=== PATIENT | female | born 1950 | race Caucasian/White ===

== ENCOUNTER → 2016-12-01 | Outpatient (CLI) | payer BC ==
[~2016-12-01] MED LIST: ALBU1AER9 INH; ASPI81TA28 PO; ATOR-26 PO; CALC600T9 PO; CLON1TAB3 PO; CLR10 PO; CYCL10TA6 PO; CZR25 PO; ESCI10TA17 PO; FURO-85 PO; IMDSR30 PO; LEVO125T72 PO; LPR25 PO; REGADENOSON 0.4 MG/5 ML SYR ONE; ROPI0.25 PO; SUMA100T16 PO
--- NOTE | 2016-12-02 11:35 | MYOCARDIAL PERFUSION SCAN ---
ONE-DAY NUCLEAR MEDICINE TECHNETIUM-99M CARDIOLITE MYOCARDIAL PERFUSION SCAN STUDY REQUESTED BY: Dr. Sathish Fernández. PRIMARY CARE PHYSICIAN: Dr. Glover. INDICATION: Dyspnea on exertion, abnormal stress echo, decreased exercise tolerance. EKG: Baseline EKG shows normal sinus rhythm at a ventricular rate of 53. There are no significant ST abnormalities. Stress EKG with Lexiscan, heart rate lidia from 56 to 85 representing 55% maximum predicted heart rate. Blood pressure lidia from 138/72 to 145/76. There was no Lexiscan ST induced abnormalities and no significant arrhythmias. With Lexiscan the patient did have mild chest discomfort. TECHNIQUE: For the stress portion of the study 29.8 mCi of technetium-99m Cardiolite IV was injected at 1336 p.m. on 12/01/2016. Thirty minutes following the injection, imaging of the heart was performed in multiple projections. For the rest portion of the study, 11 mCi of technetium-99m Cardiolite was injected IV at 11:30 a.m. One hour following the injection, imaging of the heart was performed in the same projections. FINDINGS: Rotating raw images were reviewed in detail. There was mild gut and liver uptake impacting the inferior imaging border of the heart, more so on stress than rest. There was mild lateral uniform breast attenuation. There was no significant pathologic extracardiac uptake. The short axis, vertical long axis, and horizontal long axis images were reviewed in detail. There is a small mild largely reversible perfusion defect involving the apical anterior and lateral wall, sum difference score of 3. No other significant perfusion defects noted. LV function was normal with a calculated EF of 58% and no regional wall motion abnormalities. Normal LV size with calculated end-diastolic volume of 87 mL. IMPRESSIONS: 1. Small mild reversible perfusion defect involving the anterior apical anterolateral wall potentially consistent with distal LAD verse diagonal disease. Cannot rule out possible breast attenuation artifact. 2. Normal left ventricular size and function with EF of 58% and no regional wall motion abnormalities. 3. Nondiagnostic Lexiscan EKG due to inability to reach target heart rate.
== END | disposition home or self-care (01) ==
LOC: C.NUCL 10:59
PROVIDERS: ATTEND Internal Medicine Interventional Cardiology
DX: R07.9 Chest pain, unspecified (principal)

== ENCOUNTER → 2016-12-08 | Outpatient (CLI) | payer BC ==
[~2016-12-08] MED LIST changes: -REGADENOSON 0.4 MG/5 ML SYR ONE
[2016-12-08 15:43] LABS: HEMATOCRIT 40.6 % (37-47); MEAN CELL VOLUME 92.1 fL (80-100); MEAN CORPUSCULAR HEMOGLOBIN 32.4 pg (25-34); MEAN CORPUSCULAR HGB CONC 35.2 g/dl (32-36); MEAN PLATELET VOLUME 10.3 fL (7.4-10.4); PLATELET COUNT 208 K/uL (130-400); RED BLOOD COUNT 4.41 M/uL (4.2-5.4); WHITE BLOOD COUNT 7.16 K/uL (4.8-10.8)
[2016-12-08 15:50] LABS: PARTIAL THROMBOPLASTIN RATIO 1.2; PROTHROMBIN TIME (PATIENT) 10.2 SECONDS (9.0-12.0)
[2016-12-08 16:07] LABS: BLOOD UREA NITROGEN 21 mg/dl (7-18); BUN/CREATININE RATIO 29.9 (10-20); CALCIUM 9.1 mg/dl (8.5-10.1); CARBON DIOXIDE 26 mmol/L (21-32); CHLORIDE 103 mmol/L (98-107); GLUCOSE 91 mg/dl (70-99); POTASSIUM 3.5 mmol/L (3.5-5.1); SODIUM 138 mmol/L (136-145)
== END | disposition home or self-care (01) ==
LOC: C.LAB1850 14:48
PROVIDERS: ATTEND Internal Medicine Interventional Cardiology
DX: Z01.812 Encounter for preprocedural laboratory examination (principal); R07.9 Chest pain, unspecified

== ENCOUNTER → 2016-12-23 | Day surgery (SDC) | payer BC ==
[~2016-12-23] VITALS: Ht 160 cm; Wt 89.0 kg
[~2016-12-23] MED LIST changes: +FENTANYL CITRATE INJ 50 MCG/1 ML 2 ML VIAL ONE; +HEPARIN SOD (PORCINE) 1000 UNIT/ML 10 ML VIAL ONE; +MIDAZOLAM HCL 1 MG/ML 2ML VIAL ONE; +NITROGLYCERIN/D5W 100MCG/ML 20ML SYR ONE; +NiCARDipine HCL INJ 2.5 MG/ML 10 ML AMP ONE
[2016-12-23 08:29] VITALS: BP 146/71; PULSE 59; TEMP 36.5; O2SAT 96; Ht 160 cm; Wt 89.0 kg
--- NOTE | 2016-12-23 10:25 | History & Physical Bridge Note ---
H&P Re-Evaluation Bridge Note: I have examined the patient, reviewed the History & Physical and in the interval since the performance of the History & Physical I have noted the following changes of clinical significance: No changes noted
--- NOTE | 2016-12-23 10:26 | Procedure Note ---
Pre-Mod Sedation Assessment General Date of Moderate Sedation: Dec 23, 2016. Vital Signs: Vital Signs Past 12 Hours Date Time Temp Pulse Resp B/P (MAP) Pulse Ox O2 Delivery O2 Flow Rate FiO2 12/23/16 08:29 36.5 59 18 146/71 96 Room Air Review Cardiovascular: regular rate, rhythm, no edema Abdomen: normal bowel sounds, non tender Lungs: chest non-tender, lungs clear Airway Class: III Pre-Sedation Airway Assessment Oral Cavity: WNL Able to Visualize Vocal Cords: No Short Thick Neck: No Hx of Sleep Apnea: No Smoking Status: Never Smoker Mallampati Classification: Class III ASA Classification: Class II Procedure Planning Contraindications-for Mod Sed: None Yes Notes The planned sedation has been discussed with the patient and consent obtained. I have identified the patient, determined the appropriateness of sedation and have assessed the patient immediately prior to the procedure. All medicine(s) and interventions are by my order.
--- NOTE | 2016-12-23 10:27 | Procedure Note ---
Post-Mod Sedation Assessment General Date of Moderate Sedation Dec 23, 2016. Vital Signs: Vital Signs Past 12 Hours Date Time Temp Pulse Resp B/P (MAP) Pulse Ox O2 Delivery O2 Flow Rate FiO2 12/23/16 08:29 36.5 59 18 146/71 96 Room Air Review - Discharge Criteria Vital Signs Stable: Yes Alert/Oriented/Conversant: Yes Returned to Baseline Mental St: Yes Nausea Absent/Minimal: Yes Pain/Discomfort/Absent/Minimal: Yes Normal/Baseline Respirations: Yes Active Bleeding?: No Pt Received D/C Instructions: Yes Prescriptions Given: None Specific Proced. D/C Criteria Distal Pulses Present (Cardiac: Yes Groin site assessed-Card Cath: N/A Voided Prior To Discharge: N/A Discharged Patients Adult Escort/Transportation: Yes
--- NOTE | 2016-12-23 10:43 | Cardiac Catheterization ---
Procedure Note Procedure Date Dec 23, 2016. Pre-Procedure Diagnosis Angina, Cardiothoracic Symptom AUC Score 7 Post-Procedure Diagnosis Mild CAD, Normal Intracardiac Pressures Procedure(s) Performed Coronary Angiography, Left Heart Cath Signals Analyst Pradeep Stripper Color(s) Hodan Estimated Blood Loss 10 Medication(s) Fentanyl, Heparin, Nitroglycerin, Versed, Lidocaine 1% Summary of Findings Indication: History of CAD with prior NM; new exertional chest pain/dyspnea; indeterminate stress test Access: 6Fr Slender Right Radial Artery Catheters: Transformer, JR4, JL4 Findings: LM - Angiographically normal LAD - Mild proximal luminal irregularities, slow flow as wraps around apex. Circumflex - Angiographically normal RCA - Dominant, proximal luminal irregularities, 30% in-stent restenosis in distal RCA stent, slow distal flow in R-PDA LVEDP - 11 Arterial Closure: TR Band Summary: 1. Mild non-obstructive coronary artery disease - 30% distal RCA in-stent restenosis - Slow distal vessel flow potentially consistent with microvascular dysfunction. 2. Normal intracardiac filling pressure Recommendations: Continued ASCVD risk factor modification including ARB/beta-adilene, statin, ASA. Start Imdur 30 mg daily for possible microvascular dysfunction. Consider pulmonary referral for further evaluation of dyspnea on exertion Regular scheduled follow-up with cardiology. Hemodynamics Rest Ao: 134/52/89 Final Ao: 120/59/84 LV: 130/11 Recommendations Medical therapy and/or Counseling Specimens None Radiation Exposure (mGy) 1136 Contrast (mls) 65 Visi Fluids (cc crystalloids) 105 Drains None Anesthesia Moderate Procedural Complication(s) None Disposition Recovery Room / PACU ACC Data Cardiac Status Clinical evaluation leading to the procedure CAD Presntation: Unstable angina Anginal Classification: CCS III Heart Failure: No, NYHA Class: CCS I Cardiogenic Shock w/in 24Hrs: No Imaging studies past 6 months: Yes Stress studies past 6 months: Yes Stress Echocardiogram: Yes - Indeterminant Stress Testing w/SPECT MPI: Yes - Indeterminant Coronary Anatomy Dominant: Right Left Main (% Stenosis): Normal LAD (% Stenosis): Normal Circumflex (% Stenosis): Normal RCA (% Stenosis): Distal (30% ISR) Closure Device Percutaneous Entry Location: Radial Closure Device: Radial Band Recommendations: Medical therapy and/or Counseling Intraprocedure Events Significant Dissection: No Perforation: No
--- NOTE | 2016-12-23 10:46 | Discharge Instructions ---
Discharge Instructions Procedure Procedure Date: Dec 23, 2016. Reason for Visit: Abn Stress Test Dr Fernández. Discharge Discharge Date: Dec 23, 2016. Discharge Diagnosis: Mild nonobstructive coronary artery disease Last Recorded Wt (Kilograms): 89 Anesthesia Post Anesthesia Instructions: If you have had General Anesthesia or IV Sedation: * Do not drive today. * Resume driving when surgeon permits. * Do not make important decisions or sign legal documents today. * Call surgeon for: 1. Temperature elevations greater than 101 degrees F. 2. Uncontrollable pain. 3. Excessive bleeding. 4. Persistent nausea and vomiting. 5. Medication intolerance (nausea, vomiting or rash). * For nausea and vomiting use only clear liquids such as: tea, soda, bouillon until nausea subsides, then gradually increase diet as tolerated. * If you have any concerns or questions, call your surgeon's office. If physician is unavailable and it is an emergency, call 911 or go to the nearest emergency room. Instructions Activity Recommendations: limitations as noted below Recommended Home Diet: resume previous diet Allergies: Coded Allergies: Hydrochlorothiazide (Verified Adverse Reaction, Mild, migraines, 11/24/12) Follow Up Additional Instructions: ACTIVITY RECOMMENDATIONS: It is common to feel weak and fatigue for a few days. * Do not drive or operate any motorized equipment for the next 2 days. * Limit stair usage (2 or 3 trips a day only) for the next 2 days. * Do not lift anything heavier than 10 pounds for the next three days. * Do not engage in vigorous exercise or any sports for the next five days. * You may shower the day after your procedure, but do not immerse the area for three days. Cleanse the site gently with soap and water. SPECIAL CARE INSTRUCTIONS: * You may replace the pressure dressing or band-aid the morning after the procedure. * After your procedure, it is normal to have a small bruise or small lump at the site. Examine your site daily for any change in the bruise or lump, redness, swelling, drainage or numbness. Notify your doctor if any change. BLEEDING: * If there is a small amount of bleeding at the site, lie down and apply firm pressure with a clean cloth for ten minutes. When the bleeding stops, lie quietly keeping the procedure limb straight for six hours. Notify your doctor as soon as possible. * If the bleeding does not stop after ten minutes or if there is a large amount of bleeding or spurting, call 911 immediately. Continue to lie down and hold firm pressure until help arrives. SKIN IRRITATION: * You may experience some redness and/or swelling in the area where radiation was administered. If any skin irritation occurs, please contact your family physician. FOLLOW UP VISIT: Keep any scheduled doctor appointments. Follow-up with: Cardiology as scheduled Pulmonary to be scheduled. Anant Hennessy Recommendations: Call your doctor if: * Temperature above 101 degrees * Pain not relieved by pain medicine ordered * There is increased drainage or redness from any incision * You have any unanswered questions or concerns. Your Doctors Instructions noted above were prepared by provider Chang Fernández. Patient Signature Section: Patient Instructions Signature Page Ivy Gomez Patient (or Guardian) Signature/Date: I have read and understand the instructions given to me by my caregivers. Caregiver/RN/Doctor Signature/Date: The above-named patient and/or guardian has received patient instructions on this date. + Original Patient Signature Page (only) stays with chart. Please make copy for patient.
[2016-12-23 12:45] VITALS: BP 122/55; PULSE 56; O2SAT 98
== END | disposition home or self-care (01) ==
LOC: C.CATH 08:20
PROVIDERS: ATTEND Internal Medicine Interventional Cardiology
DX: I25.10 Atherosclerotic heart disease of native coronary artery without angina pectoris (principal); I42.9 Cardiomyopathy, unspecified; I10 Essential (primary) hypertension; E78.5 Hyperlipidemia, unspecified; I25.2 Old myocardial infarction; M19.90 Unspecified osteoarthritis, unspecified site; E05.00 Thyrotoxicosis with diffuse goiter without thyrotoxic crisis or storm; G25.81 Restless legs syndrome; Z80.3 Family history of malignant neoplasm of breast; Z83.3 Family history of diabetes mellitus; Z87.891 Personal history of nicotine dependence; Z79.82 Long term (current) use of aspirin; Z79.899 Other long term (current) drug therapy

== ENCOUNTER → 2017-01-20 | Outpatient (CLI) | payer BC ==
[~2017-01-20] MED LIST changes: -ALBU1AER9 INH; -CALC600T9 PO; -CLR10 PO; -FENTANYL CITRATE INJ 50 MCG/1 ML 2 ML VIAL ONE; -HEPARIN SOD (PORCINE) 1000 UNIT/ML 10 ML VIAL ONE; -MIDAZOLAM HCL 1 MG/ML 2ML VIAL ONE; -NITROGLYCERIN/D5W 100MCG/ML 20ML SYR ONE; -NiCARDipine HCL INJ 2.5 MG/ML 10 ML AMP ONE
--- NOTE | 2017-01-20 12:03 | DIAGNOSTIC IMAGING REPORT ---
CHEST 2 VIEWS ROUTINE CLINICAL HISTORY: 66 years-old Female presenting with dyspnea on exertion. TECHNIQUE: PA and lateral views of the chest were obtained. COMPARISON: 07/09/2014. FINDINGS: Cardiac silhouette remains mildly enlarged. Apparent left basilar opacity may represent overlapping soft tissues as no corresponding opacity is noted on lateral view. No convincing evidence of a focal infiltrate. No pleural effusion or pneumothorax. Osseous structures normal. Upper abdomen normal. IMPRESSION: 1. Cardiomegaly. No acute cardiopulmonary disease. Electronically signed by: Raj Azar M.D. 01/20/2017 12:01 PM Dictated Date/Time: 01/20/2017 12:00 PM
== END | disposition home or self-care (01) ==
LOC: C.RAD1850 11:43
PROVIDERS: ATTEND Internal Medicine Pulmonary Disease
DX: R06.09 Other forms of dyspnea (principal); I51.7 Cardiomegaly; M79.604 Pain in right leg

== ENCOUNTER → 2017-01-20 | Outpatient (CLI) | payer BC ==
--- NOTE | 2017-01-20 14:43 | DIAGNOSTIC IMAGING REPORT ---
VENOUS DOPPLER LW EXT BILAT HISTORY: Pain. Edema. M79.604 Leg pain, posterior COMPARISON STUDY: None. FINDINGS: There is normal compressibility, flow, and augmentation within the bilateral lower extremity deep venous systems. IMPRESSION: No DVT within the right or left lower extremity. The above report was generated using voice recognition software. It may contain grammatical, syntax or spelling errors. Electronically signed by: Karri Dyson M.D. 01/20/2017 2:41 PM Dictated Date/Time: 01/20/2017 2:41 PM
== END | disposition home or self-care (01) ==
LOC: C.ULTRBC 13:14
PROVIDERS: ATTEND Internal Medicine Pulmonary Disease
DX: M79.604 Pain in right leg (principal)

== ENCOUNTER → 2017-02-17 | Outpatient (CLI) | payer BC | END | disposition home or self-care (01) | LOC: C.LAB1850 09:58 | PROVIDERS: ATTEND Internal Medicine Pulmonary Disease | DX: R06.09 Other forms of dyspnea (principal) ==

== ENCOUNTER → 2017-03-01 | Outpatient (CLI) | payer BC ==
--- NOTE | 2017-03-01 17:33 | DIAGNOSTIC IMAGING REPORT ---
CT OF THE CHEST WITHOUT IV CONTRAST CLINICAL HISTORY: Dyspnea on exertion. Abnormal diffusion capacity on pulmonary function tests. COMPARISON STUDY: Chest CT September 22, 2007 and chest radiograph January 20, 2017. CT DOSE: 404.94 mGy.cm TECHNIQUE: Axial images of the chest were obtained without IV contrast. Images were reviewed in the axial, sagittal, and coronal planes. IV contrast was not administered for this examination. A dose lowering technique was utilized adhering to the principles of ALARA. FINDINGS: The thyroid is surgically absent. No enlarged axillary, mediastinal or hilar lymph nodes are present. The heart is mildly enlarged. There is no pericardial effusion. No pneumothorax or pleural effusion is present. The central airways are patent. There is no consolidation to suggest pneumonia. There is mild upper lobe predominant paraseptal and centrilobular emphysema. In addition, there is peripheral predominant subpleural reticulation and groundglass opacity without honeycombing. Slight progression is noted since exam of September 22, 2007. Tiny upper lobe predominant pulmonary nodules which are likely benign. There are no suspicious pulmonary nodules. Bony thorax and upper abdomen are unremarkable on this unenhanced exam. IMPRESSION: 1. Mild peripheral predominant subpleural reticulation and groundglass opacity which suggests interstitial lung disease with a NSIP (nonspecific interstitial pneumonia) pattern. No honeycombing. 2. Mild upper lobe predominant centrilobular and paraseptal emphysema. 3. Tiny upper lobe predominant nodules which are likely benign. No suspicious pulmonary nodules. 4. No consolidation to suggest pneumonia. Electronically signed by: Harvey Valentine M.D. 03/01/2017 5:32 PM Dictated Date/Time: 03/01/2017 4:42 PM
== END | disposition home or self-care (01) ==
LOC: C.CTS 15:56
PROVIDERS: ATTEND Internal Medicine Pulmonary Disease
DX: R06.09 Other forms of dyspnea (principal); R94.2 Abnormal results of pulmonary function studies; R91.8 Other nonspecific abnormal finding of lung field

== ENCOUNTER → 2017-03-16 | Outpatient (CLI) | payer BC ==
[2017-03-19 10:56] LABS: ANTI-CENTROMERE AB <1.0 NEG AI (<1.0 NEG); ANTI-SS-A <1.0 NEG AI (<1.0 NEG); ANTI-SS-B <1.0 NEG AI (<1.0 NEG); DNA ds CRITHIDIA NEGATIVE (NEGATIVE); Sm Antibody <1.0 NEG AI (<1.0 NEG)
== END | disposition home or self-care (01) ==
LOC: C.LAB1850 10:27
PROVIDERS: ATTEND Internal Medicine Pulmonary Disease
DX: J84.9 Interstitial pulmonary disease, unspecified (principal)

== ENCOUNTER → 2017-05-13 | Outpatient (CLI) | payer BC ==
[~2017-05-13] MED LIST changes: +OPTIRAY 320 IV PRN
--- NOTE | 2017-05-13 12:36 | DIAGNOSTIC IMAGING REPORT ---
CT ANGIOGRAM OF THE CHEST CLINICAL HISTORY: Atypical chest pain and shortness of breath COMPARISON STUDY: 03/01/2017 TECHNIQUE: Following the IV administration of 94 mL of Optiray-320, CT angiogram of the thorax was performed from the thoracic inlet to the lung bases utilizing the pulmonary embolus protocol. Images are reviewed in the axial, sagittal, and coronal planes. IV contrast was administered without complication. MIP imaging was performed. A dose lowering technique was utilized adhering to the principles of ALARA. CT DOSE: 457.26 mGycm FINDINGS: There are persistent mildly enlarged mediastinal lymph nodes. There is a 12 mm short axis right paratracheal lymph node. There is a 1 cm short axis prevascular lymph node. There is no pathologic hilar adenopathy. There is no pathologic axillary lymphadenopathy. There was no evidence of thoracic aortic dilatation. Peripheral lower lobe pulmonary artery opacification is suboptimal. There are no pulmonary artery filling defects however to indicate acute pulmonary embolus. No pleural effusions are visualized. There is persistent subpleural reticulation. This has a slight upper lung zone predominance. There is no honeycombing. There is no focal pulmonary consolidation. There are no suspicious pulmonary masses. IMPRESSION: 1. No evidence of acute pulmonary embolism 2. Stable mild mediastinal lymphadenopathy 3. Persistent subpleural reticulation suggesting underlying interstitial lung disease. The pattern is inconsistent with UIP Electronically signed by: Corwin Felder M.D. 05/13/2017 12:34 PM Dictated Date/Time: 05/13/2017 12:29 PM
== END | disposition home or self-care (01) ==
LOC: C.CTS 12:12
PROVIDERS: ATTEND Internal Medicine Interventional Cardiology
DX: R07.9 Chest pain, unspecified (principal); R06.09 Other forms of dyspnea; R59.0 Localized enlarged lymph nodes

== ENCOUNTER → 2017-08-12 | Outpatient (CLI) | payer BC ==
[~2017-08-12] MED LIST changes: -OPTIRAY 320 IV PRN
[2017-08-12 12:43] LABS: HEMOGLOBIN A1C 5.4 % (4.5-5.6)
== END | disposition home or self-care (01) ==
LOC: C.LAB1850 11:29
PROVIDERS: ATTEND Internal Medicine Endocrinology, Diabetes & Metabolism
DX: E03.9 Hypothyroidism, unspecified (principal)

== ENCOUNTER 2019-02-20 10:04 | Inpatient (IN) ==
--- NOTE | 2019-01-26 16:42 | PAT Medication Instructions ---
Medication Instructions Date of Service January 26, 2019 Home Medications atorvastatin 40 mg PO QAM escitalopram oxalate [Lexapro] 10 mg PO QAM furosemide 40 mg PO QAM levothyroxine 125 mcg PO QAM metoprolol tartrate 12.5 mg PO BID sumatriptan succinate 1 dose PO UD PRN Dulera 2 puff INHALATION BID albuterol sulfate [ProAir HFA] 2 puff INHALATION QID PRN cyclobenzaprine 10 mg tablet 10 mg PO HS PRN loratadine 10 mg tablet 10 mg PO QAM PRN prednisone 5 mg tablet 5 mg PO QAM ascorbic acid (vitamin C) [Vitamin C] 1 g PO DAILY aspirin 81 mg PO QAM calcium carbonate [Calcium 500] 1,000 mg PO HS multivitamin 1 tab PO DAILY trazodone 50 mg PO HS PRN vitamin B complex 1 tab PO DAILY Continue as directed prednisone 5 mg tablet 5 mg PO QAM ASK your surgeon for instructions aspirin 81 mg PO QAM DO NOT take the morning of surgery furosemide 40 mg PO QAM loratadine 10 mg tablet 10 mg PO QAM PRN ascorbic acid (vitamin C) [Vitamin C] 1 g PO DAILY calcium carbonate [Calcium 500] 1,000 mg PO HS multivitamin 1 tab PO DAILY vitamin B complex 1 tab PO DAILY Take morning of surgery With a small sip of water, OTHERWISE NOTHING TO EAT OR DRINK AFTER MIDNIGHT: atorvastatin 40 mg PO QAM escitalopram oxalate [Lexapro] 10 mg PO QAM levothyroxine 125 mcg PO QAM metoprolol tartrate 12.5 mg PO BID sumatriptan succinate 1 dose PO UD PRN (if needed) Dulera 2 puff INHALATION BID albuterol sulfate [ProAir HFA] 2 puff INHALATION QID PRN (use if needed; please bring with you to hospital day of surgery if possible) Take evening before surgery metoprolol tartrate 12.5 mg PO BID sumatriptan succinate 1 dose PO UD PRN (if needed) Dulera 2 puff INHALATION BID albuterol sulfate [ProAir HFA] 2 puff INHALATION QID PRN (if needed) cyclobenzaprine 10 mg tablet 10 mg PO HS PRN (if needed) calcium carbonate [Calcium 500] 1,000 mg PO HS trazodone 50 mg PO HS PRN (if needed) Other Notes If you have any questions please call us at [phone] or [phone] or [phone] or [phone]
--- NOTE | 2019-01-27 09:04 | Anesthesiology Consultation ---
Date of Service January 27, 2019 Assessment & Plan (1) Encounter for pre-operative examination: Chart Review Chart Review: Pending: Refer to Additional Notes / Consult section (awaiting preop testing) and Patient seen in Pre Admission Testing History Surgery Operation Date: 02/20/19 10:10 Proposed Procedures p Right Total Knee Revision Arthroplasty, Tibial Component, Possible Cement Spacer, Synovectomy - Cristopher Bowden MD Height/Weight Height: 5 ft 3 in Weight: 101.2 kg Allergies Allergy/AdvReac Type Severity Reaction Status Date / Time hydrochlorothiazide AdvReac Mild migraines Verified 01/24/19 07:17 Medications Home Medications Medication Instructions Recorded Confirmed Last Taken atorvastatin 40 mg PO QAM 07/12/18 01/24/19 07/21/18 10:00 escitalopram oxalate [Lexapro] 10 mg PO QAM 07/12/18 01/24/19 07/22/18 06:00 furosemide 40 mg PO QAM 07/12/18 01/24/19 07/21/18 10:00 levothyroxine 125 mcg PO QAM 07/12/18 01/24/19 07/22/18 05:30 metoprolol tartrate 12.5 mg PO BID 07/12/18 01/24/19 07/22/18 06:00 sumatriptan succinate 1 dose PO UD PRN 07/12/18 01/24/19 06/23/18 14:00 Dulera 2 puff INHALATION BID 07/22/18 01/24/19 07/21/18 23:00 albuterol sulfate [ProAir HFA] 2 puff INHALATION QID PRN 07/22/18 01/24/19 07/21/18 10:00 cyclobenzaprine 10 mg tablet 10 mg PO HS PRN #90 tab 01/18/19 01/24/19 Unknown loratadine 10 mg tablet 10 mg PO QAM PRN tab 01/18/19 01/24/19 Unknown prednisone 5 mg tablet 5 mg PO QAM #30 tab 01/18/19 01/24/19 Unknown ascorbic acid (vitamin C) [Vitamin 1 g PO DAILY 01/24/19 01/24/19 Unknown C] aspirin 81 mg PO QAM 01/24/19 01/24/19 Unknown calcium carbonate [Calcium 500] 1,000 mg PO HS 01/24/19 01/24/19 Unknown multivitamin 1 tab PO DAILY 01/24/19 01/24/19 Unknown trazodone 50 mg PO HS PRN 01/24/19 01/24/19 Unknown vitamin B complex 1 tab PO DAILY 01/24/19 01/24/19 Unknown Past Medical History Medical History Chronic steroid use r/t lung disease History of hyperthyroidism Graves Disease - Contributed to [place]. Had thyroidectomy in 2013, now hypothyroid. Interstitial lung disease FOLLOWS W/ DR. ISABEL CASTRO Migraine Myocardial Infarction 2012 On home oxygen therapy 2-4 LPM PRN W/ ACTIVITY DURING DAYTIME. 2 LPM AT NIGHT. Osteoarthritis Restless leg syndrome Exercise / Class Metabolic Activity III < 4 Walking/Shop/Light housework Past Family History Family History Brother Family history of diabetes mellitus Grandfather (Maternal) Family history of diabetes mellitus Grandfather (Paternal) Family history of diabetes mellitus Past Surgical History Surgical History H/O tubal ligation History of arthroscopy of both knees X 4 History of cardiac cath 2013 - [facility] - 1 STENT PLACED - FOLLOWS W/ DR. VAZQUEZ 2017 - [facility] - NO STENTS/ANGIOPLASTY History of colonoscopy History of elbow surgery RT History of heart artery stent X1 2013 History of lumbar fusion History of sinus surgery History of tonsillectomy History of total knee replacement BL History of total thyroidectomy History of wisdom tooth extraction Hx of lumpectomy right breast x2 S/P foot surgery, left with hardware Social History Smoking Status: Former smoker tobacco type: cigarettes Do You Dip or Chew Tobacco: No Hx Alcohol Use: Yes Alcohol type: wine alcohol intake frequency: 0-2 drinks per day Hx Substance Use: No substance use type: does not use Physical Exam Vital Signs Last Vital Signs Temp 97.5 F L 01/27/19 08:56 Pulse 74 01/27/19 08:56 Resp 18 01/27/19 08:56 BP 145/86 H 01/27/19 08:56 Pulse Ox 98 01/27/19 08:56 ENMT Mouth: no dentition abnormality Thyromental Distance: > or= 3.5 Finger Breadths Mallampati Class: II Neck normal visual inspection Respiratory normal respiratory effort Auscultation: lungs clear to auscultation bilaterally Cardiovascular Rate/Rhythm: regular rate and regular rhythm Testing Laboratory Results Laboratory Tests 07/14/18 12/14/18 13:45 08:27 WBC 6.82 Hgb 13.7 Plt Count 208 PT 9.8 INR 1.0 APTT 28.3 Electrocardiogram Date: 01/16/19 Findings: + NSR @ (72 bpm) Probable LAE Nonspecific IVCD Chest X-Ray Date: 07/14/18 IMPRESSION: 1. No acute cardiopulmonary findings. 2. Moderate cardiomegaly without evidence for pulmonary edema. 3. Stable mild interstitial thickening which favors interstitial lung disease.
[2019-01-27 10:25] LABS: Basophils # (auto) 0.05 K/uL (0-0.2); Basophils % (auto) 0.7 %; Eosinophils # (auto) 0.31 K/uL (0-0.5); Eosinophils % (auto) 4.5 %; Hematocrit (blood only) 41.7 % (37-47); Hemoglobin 13.9 g/dL (12.0-16.0); Immature Granulocytes # (auto) 0.03 K/uL (0.00-0.02); Immature Granulocytes % (auto) 0.4 %; Lymphocytes # (auto) 1.69 K/uL (1.2-3.4); Lymphocytes % (auto) 24.4 %; Mean Corpuscular Hemoglobin 31.8 pg (25-34); Mean Corpuscular Hgb Conc 33.3 g/dL (32-36); Mean Corpuscular Volume 95.4 fL (80-100); Mean Platelet Volume 10.5 fL (7.4-10.4); Monocytes # (auto) 0.47 K/uL (0.11-0.59); Monocytes % (auto) 6.8 %; Neutrophils # (auto) 4.38 K/uL (1.4-6.5); Neutrophils % (auto) 63.2 %; Platelet Count 210 K/uL (130-400); RDW Coefficient of Variation 13.4 % (11.5-14.5); RDW Standard Deviation 46.4 fL (36.4-46.3); Red Blood Count 4.37 M/uL (4.2-5.4); White Blood Count 6.93 K/uL (4.8-10.8)
[2019-01-27 10:27] LABS: Appearance Urine Clear (Clear); Bilirubin Urine Negative (Negative); Blood Urine Negative (Negative); Color Urine Dark Yellow; Glucose Urine UA Negative (Negative); Ketones Urine Trace (Negative); Leukocyte Esterase Urine Negative (Negative); Nitrite Urine Negative (Negative); Protein Urine Negative (Negative); Specific Gravity Urine 1.028 (1.000-1.030); Urobilinogen Urine Negative (Negative)
[2019-01-27 10:28] LABS: Albumin Level 3.6 gm/dl (3.4-5.0); BUN Creatinine Ratio 25.7 (10-20); Calcium 8.7 mg/dl (8.5-10.1); Creatinine Clr Calc Pharmacy 84.9 ml/min; Est GFR (African American) 99.7; Est GFR (Non-African American) 86.1; Potassium 3.5 mmol/L (3.5-5.1)
[2019-01-27 10:32] LABS: Estimated Average Glucose 108 mg/dl; Hemoglobin A1C 5.4 % (4.5-5.6)
[2019-01-27 10:34] LABS: Partial Thromboplastin Ratio 1.1; Partial Thromboplastin Time 29.4 Seconds (21.0-31.0); Prothrombin Time 10.3 Seconds (9.0-12.0)
--- NOTE | 2019-02-19 18:43 | History and Physical Report ---
DATE OF ADMISSION: 02/20/2019 CHIEF COMPLAINT: Chronic right knee pain status post total knee arthroplasty in 2007. HISTORY OF PRESENT ILLNESS: This is a 68-year-old female patient of Dr. Arteaga who underwent a total knee arthroplasty on the right in 2007. She has been having chronic pain and instability. 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 PAST MEDICAL HISTORY: Coronary artery disease status post an [place] in 2012. She has interstitial lung disease, hypothyroidism, obesity. SOCIAL HISTORY: She was a lifelong smoker, quit in 1988. She is an occasional drinker. PAST SURGICAL HISTORY: Knee replacements x2, foot and ankle fusion, shoulder surgery, back surgery, oral surgery, tonsillectomy. FAMILY HISTORY: Noncontributory. REVIEW OF SYSTEMS: Chronic right knee pain and instability, status post a total knee arthroplasty in 2007. Otherwise, denies any shortness of breath, chest pain, nausea, vomiting or any other joint complaints. MEDICATIONS: Atorvastatin 40 mg daily, metoprolol 25 mg twice daily, aspirin 81 mg daily, levothyroxine 125 mcg daily, Lexapro 10 mg daily, furosemide 40 mg daily, prednisone 5 mg daily, Dulera 2 puffs b.i.d., albuterol HFA rescue inhaler as needed. ALLERGIES: No known drug allergies. PHYSICAL EXAMINATION: GENERAL: Well-developed, well-nourished 68-year-old female in no acute distress. She is alert and oriented x3 and pleasant. HEENT: Normocephalic, atraumatic. Extraocular motions are intact. Pupils are equal and reactive to light. HEART: Regular rate and rhythm, no murmurs appreciated. LUNGS: Clear with decreased sounds in the right upper lobe. ABDOMEN: Soft, nontender, bowel sounds present. EXTREMITIES: Right knee, she has positive pain and crepitation with range of motion. She has limited range of motion of 0-110 degrees. She has a valgus deformity with mild effusion. She has 5/5 strength with pain. NEUROLOGIC: Neurovascularly, she is intact in her right lower extremity. DIAGNOSES: Right knee aseptic loosening total knee arthroplasty with a history of coronary artery disease status post an [place] in 2012, interstitial lung disease, hypothyroidism, obesity. PLAN: The patient was advised of her diagnosis. Indications, risks, benefits, postop course have all been reviewed. The patient wished to proceed with a right total knee revision arthroplasty of tibial component and a possible cement spacer and synovectomy. Necessary consent forms, preoperative testing and clearances will be obtained.
[~2019-02-20 10:04] MED LIST changes: +ACETAMINOPHEN 500 MG TAB PO SCH; -ASPI81TA28 PO; -ATOR-26 PO; +BUPIVACAINE 0.25% 30 ML VIAL ONE; +BUPIVACAINE 0.5 % 5 MG/1 ML PF 10ML VIAL ONE; +CEFAZOLIN 2000MG 2,000 MG/15 ML SYR IV SCH; -CLON1TAB3 PO; -CYCL10TA6 PO; -CZR25 PO; +CeleBREX 200 MG CAP PO SCH; -ESCI10TA17 PO; +FAMOTIDINE 20 MG TAB PO SCH; -FURO-85 PO; +GABAPENTIN 300 MG CAP PO SCH; -IMDSR30 PO; +KETAMINE HCL INJ 50 MG/ML 10 ML VIAL ONE; -LEVO125T72 PO; -LPR25 PO; +LR 500ML BOLUS, THEN 15ML/HR IV SCH; +METOCLOPRAMIDE HCL 10 MG TABLET PO SCH; +MIDAZOLAM HCL 1 MG/ML 2ML VIAL ONE; -ROPI0.25 PO; +ROPIVACAINE 0.5% HCL/PF 150 MG, BUPIVACAINE 0.5% MPF 30 ML, EPINEPHrine 30MG/30ML (OR U... INFIL SCH; -SUMA100T16 PO; +VANCOMYCIN HCL 1,500 MG in SODIUM CHLORIDE 0.9% 500 ML IV SCH; +dexAMETHasone 4 MG TAB PO SCH
--- NOTE | 2019-02-20 10:25 | History & Physical Bridge Note ---
Date of Service February 20, 2019 History & Physical Bridge Note I have examined the patient, reviewed the History & Physical and in the interval since the performance of the History & Physical I have noted the following changes of clinical significance: no changes noted
[2019-02-20] MEDS ORDERED: BACITRACIN INJ 50,000 UNIT VIAL ONE (11:35)
[2019-02-20] MEDS ORDERED: ORTHO JOINT ANESTHETIC ONE (11:35)
[2019-02-20] MEDS ORDERED: ONDANSETRON INJ 2 MG/ML 2 ML VIAL IV PRN ×2 (11:49→17:23)
[2019-02-20] MEDS ORDERED: ATROPINE SULFATE 0.1 MG/ML 10ML SYR IV PRN (11:49)
[2019-02-20] MEDS ORDERED: ePHEDrine sulfate 50 MG/ML AMP IV PRN (11:49)
[2019-02-20] MEDS ORDERED: fentaNYL citrate 100 MCG/2 ML VIAL IV PRN (11:49)
[2019-02-20] MEDS ORDERED: ONDANSETRON INJ 2 MG/ML 2 ML VIAL ONE (13:01)
[2019-02-20] MEDS ORDERED: LIDOCAINE HCL 2% 2 ML VIAL/AMP(20MG/ML) INFIL ONE (13:01)
[2019-02-20] MEDS ORDERED: DEXAMETHASONE SOD INJ 4 MG/ML VIAL ONE (13:01)
[2019-02-20] MEDS ORDERED: PROPOFOL IV EMULSION 10 MG/ML 20 ML VIAL IV ONE ×3 (13:01→14:32)
[2019-02-20] MEDS ORDERED: GLYCOPYRROLATE 0.2 MG/ML VIAL ONE (13:01)
[2019-02-20] MEDS ORDERED: fentaNYL citrate 100 MCG/2 ML VIAL ONE (15:01)
[2019-02-20] MEDS ORDERED: KETAMINE HCL INJ 50 MG/ML 10 ML VIAL ONE (15:03)
--- NOTE | 2019-02-20 15:40 | Post Operative Brief Note ---
Immediate Post Op Note v1 Date of Surgery February 20, 2019 Pre & Post Diagnosis Operation Date: 02/20/19 12:50 Pre-Op Diagnosis: Aseptic Loosening Right Total Knee Arthroplasty, obesity BMI 39.6 Post-Op Diagnosis: Aseptic Loosening Right Total Knee Arthroplasty, obesity BMI 39.6, chronic synovitis I identified the patient and participated in the time-out.: Yes Procedure Operation Date: 02/20/19 12:50 Actual Procedures p Right Total Knee-- Revision of Tibial Components and Synovectomy(Right), superficial wound VAC, increased difficulty obesity BMI 39.6- Cristopher Bowden MD Surgeon Cristopher Bowden MD Carbon Furnace Operator Joni DAN Estimated Blood Loss 100 Findings Consistent with Post-Op Diagnosis Specimens Multiple specimens swabs and soft tissue for culture, multiple soft tissue specimens for frozen section Drains Sumner Catheter (A 16 Pakistani sumner catheter was inserted by Denisse Hernandez RN, without difficulty, concentrated yellow urine obtained, output to be monitored by Anesthesia.) and Hemovac Drain Anesthesia Type MAC Spinal Regional Complications none Disposition Accompanied Patient To Recovery: No Disposition: Recovery Room Overlapping Procedure I was immediately available: during the entire case.
--- NOTE | 2019-02-20 16:43 | Anesthesiology Progress Note ---
Date of Service February 20, 2019 Anesthesia Post Procedure Vital Signs Vital Signs: Temp Pulse Pulse Resp BP Pulse Ox 02/20/19 16:30 37.8 C H 59 L 13 129/79 93 02/20/19 16:20 37.4 C 61 22 135/66 95 02/20/19 16:10 37.4 C 67 15 149/82 H 95 02/20/19 16:03 37.4 C 73 20 122/81 98 02/20/19 10:48 36.6 C 54 L 20 176/96 H 95 Pain Intensity Right Knee: Pain Intensity: 0 Transfer of Care Handoff Completed per policy Notes Mental Status: alert / awake / arousable Patient Amnestic to Procedure: Yes Nausea / Vomiting: adequately controlled Pain: adequately controlled Airway Patency, RR, SpO2: stable & adequate BP & HR: stable & adequate Hydration State: stable & adequate Neuraxial Anesthesia: was administered and sensory block is resolving Anesthetic Complications: no major complications apparent and Pt Satisfied with anesthetic care
--- NOTE | 2019-02-20 17:08 | XRay Report ---
TWO VIEWS RIGHT KNEE CLINICAL HISTORY: Postoperative examination. FINDINGS: AP and crosstable lateral portable views of the right knee are obtained. A right knee arthr oplasty is in near anatomic alignment. There is a long tibial stem. There has been undersurface remod eling of the patella. No acute fracture is seen. There are expected postoperative changes around the knee including skin clips, a surgical drain, soft tissue edema, and subcutaneous gas. IMPRESSION: Expected postoperative changes status post right knee arthroplasty. No acute fracture is seen. Electronically signed by: Tonio Chase M.D. 02/20/2019 5:07 PM
[2019-02-20] MEDS ORDERED: SUMAtriptan succinate 100 MG TAB PO PRN (17:23)
[2019-02-20] MEDS ORDERED: bisacodyL 10 MG SUPP PR PRN (17:23)
[2019-02-20] MEDS ORDERED: SODIUM CHLORIDE 0.9% 1000ML 1,000 ML IV SCH (17:23)
[2019-02-20] MEDS ORDERED: NALOXONE HCL 0.4 MG/1 ML VIAL/CARP IV PRN (17:23)
[2019-02-20] MEDS ORDERED: MAGNESIUM HYDROXIDE SUSP 30 ML UDC PO PRN (17:23)
[2019-02-20] MEDS ORDERED: LORATADINE 10 MG TAB PO PRN (17:23)
[2019-02-20] MEDS: HYDROmorphone INJ 0.5 MG/0.5 ML SYR IV PRN ×2 (17:59→22:12)
[2019-02-20] MEDS ORDERED: ALBUTEROL HFA 8 GM INHALER INH PRN (18:00)
--- NOTE | 2019-02-20 19:14 | Hospitalist Consultation ---
Date of Consultation February 20, 2019 Assessment & Plan (1) Status post revision of total replacement of right knee: This is a 68yo F with a PMH of interstitial lung disease, acquired hypothyroidism, CAD (s/p stent in 2012), hypertension and other medical problems listed below who is POD#0 s/p right TKA revision by Dr. Bowden. -POD#0 s/p right TKA revision by Dr. Bowden -Pt is doing well post-operatively -Initially with T: 37.8 post op but now afebrile at 36.7. Monitor temperature -Per ortho for pain control, wound care, anticoagulation and activities -Monitor H&H (pre-op hgb of 13.9). EBL: 100 ml -Continue incentive spirometry, PT/OT when appropriate (2) Interstitial lung disease: Follows with Dr. Castro -Missed morning dose of prednisone 5mg but received pre-op decadron. Resume home dose prednisone tomorrow -Continue 2L NC HS, albuterol PRN (3) CAD (coronary artery disease): H/o stent in 2012. Follows with Dr. Vazquez -No chest pain -Baby aspirin currently held by surgery. Recommend resuming soon -Continue statin, Lopressor (4) HTN (hypertension): Normotensive now -Continue Lopressor -Lasix held by surgery. Reassess volume status tomorrow (5) Acquired hypothyroidism: H/o toxic multinodular goiter s/p thyroidectomy in 2013 -Recent TSH elevated at 11.17 with Free T4 of 1.63 on 12/30/18. Recommended to take 250mcg of Levothyroxine once a week (and 125mcg all other days) -Due for follow up with [facility] next month PCP: Maury Glover Dispo: Per primary service Patient seen in collaboration with Dr. Perez. Please see addendum. Thank you for this consultation. We will follow the patient with you during their hospital stay. You can reach a member of the [facility] Hospitalist Team 23/11 via pager @ [phone]. Supervising Physician Co-Signing Physician Notes HISTORY: Record reviewed. Patient interviewed and examined. Care coordinated with Rosalinda Hennessy PA-C. Please refer to her documentation for complete history. Briefly, 68-year-old female with history of ischemic heart disease, hypertension, interstitial lung disease on prednisone, and other problems. Revision of right total knee arthroplasty performed today by Dr. Bowden. Patient was seen in her room postoperatively. Doing well. No chest pain, cough, shortness of breath, nausea, vomiting. She is having some postoperative pain. EXAM: General- no distress Lungs- clear to auscultation; no respiratory distress Cardiovascular- RRR; no gallop; no JVD; no pretibial edema Abdomen- + bowel sounds, soft, nontender Extremities- no cyanosis; no calf tenderness; SCDs applied Neuro- alert, oriented Skin- warm & dry DATA: Preop labs were done on 01/27/2019. Hemoglobin 13.9, white count 6930, platelet count 210,000. PT, INR, PTT normal. Chemistry profile showed normal electrolytes, BUN 18, creatinine 0.72, glucose 83. Other lab studies as noted. EKG performed at [facility] on 01/16/2019 reviewed and demonstrated normal sinus rhythm at 72/ minute, no acute ST or T wave abnormalities. ASSESSMENT AND PLAN: Status post revision of total knee arthroplasty. History of coronary artery disease. Status post PCI with stent in 2012. Continue aspirin if okay from surgical perspective. Continue metoprolol and statin. History of hypertension. Continue metoprolol. Interstitial lung disease on prednisone 5 mg daily and at bedtime O2. Patient received dexamethasone this morning perioperatively. She is hemodynamically stable postoperatively. Resume usual dose of prednisone tomorrow. Please refer to NI Hennessy's documentation for discussion of other issues. Thank you for this consultation. We will follow the patient with you during their hospital stay. My cell # is [phone]. You can reach a member of the [facility] Medicine Team 23/11 via pager @ [phone]. History of Present Illness Reason for Consultation: post op medical management Attending Physician: Cristopher Bowden MD History of Present Illness This is a 68yo F with a PMH of interstitial lung disease, acquired hypothyroidism, CAD (s/p stent in 2012), hypertension and other medical problems listed below who is POD#0 s/p right TKA revision by Dr. Bowden. Patient is feeling well postoperatively. Endorses minimal surgical site pain. No distal numbness or paresthesias to right lower extremity. Denies any chills, lightheadedness, visual changes, chest pain, palpitations, shortness of breath, wheezing, nausea, vomiting, abdominal pain, dysuria or lower extremity swelling. Temperature of 37.8 C postoperatively but is now afebrile at 36.7 C. Patient follows with Dr. castro for interstitial lung disease and is on 5 mg prednisone chronically for the past year. Also uses 2 L nasal cannula O2 at bedtime. Allergies Allergy/AdvReac Type Severity Reaction Status Date / Time hydrochlorothiazide AdvReac Mild migraines Verified 02/20/19 10:41 Home Medications Home Medications Medication Instructions Recorded Confirmed Type atorvastatin 40 mg PO QAM 07/12/18 02/20/19 History escitalopram oxalate [Lexapro] 10 mg PO QAM 07/12/18 02/20/19 History furosemide 40 mg PO QAM 07/12/18 02/20/19 History levothyroxine 125 mcg PO QAM 07/12/18 02/20/19 History metoprolol tartrate 12.5 mg PO BID 07/12/18 02/20/19 History sumatriptan succinate [Imitrex] 1 dose PO UD PRN 07/12/18 02/20/19 History albuterol sulfate [ProAir HFA] 2 puff INHALATION QID PRN 07/22/18 02/20/19 History cyclobenzaprine 10 mg tablet 10 mg PO HS PRN #90 tab 01/18/19 02/20/19 History loratadine 10 mg tablet 10 mg PO QAM PRN tab 01/18/19 02/20/19 History prednisone 5 mg tablet 5 mg PO QAM #30 tab 01/18/19 02/20/19 History aspirin 81 mg PO QAM 01/24/19 02/20/19 History calcium carbonate [Calcium 500] 1,000 mg PO HS 01/24/19 02/20/19 History multivitamin 1 tab PO DAILY 01/24/19 02/20/19 History trazodone 50 mg PO HS PRN 01/24/19 02/20/19 History vitamin B complex 1 tab PO DAILY 01/24/19 02/20/19 History cholecalciferol (vitamin D3) 2,000 unit PO DAILY 02/20/19 02/20/19 History Patient History Medical History Acquired hypothyroidism (Chronic) Chronic steroid use (Chronic) r/t lung disease HTN (hypertension) (Chronic) Interstitial lung disease (Chronic) FOLLOWS W/ DR. ISABEL CASTRO Migraine (Chronic) Osteoarthritis (Chronic) Restless leg syndrome (Chronic) History of hyperthyroidism (Resolved) History of toxic multi-nodular goiter - Contributed to [place]. Had thyroidectomy in 2013, now hypothyroid. Surgical History History of heart artery stent (Chronic) X1 2013 Hx of lumpectomy (Chronic) right breast x2 S/P foot surgery, left (Chronic) with hardware H/O tubal ligation (Chronic) History of arthroscopy of both knees (Chronic) X 4 History of cardiac cath (Chronic) 2013 - [facility] - 1 STENT PLACED - FOLLOWS W/ DR. VAZQUEZ 2017 - [facility] - NO STENTS/ANGIOPLASTY History of elbow surgery (Chronic) RT History of lumbar fusion (Chronic) History of sinus surgery (Chronic) History of tonsillectomy (Chronic) History of total knee replacement (Chronic) BL History of total thyroidectomy (Chronic) History of wisdom tooth extraction (Chronic) Family History Brother Family history of diabetes mellitus Grandfather (Maternal) Family history of diabetes mellitus Grandfather (Paternal) Family history of diabetes mellitus Social History Preferred Language: Malay Communication Ability: Effective Obiee Report Developer Required: No Beliefs That Will Affect Care: None Current Living Situation: Spouse Other Information That Helps Us Care for You: No Feels Safe at Home: Yes Safety Concerns: Feels Safe At This Time Smoking Status: Former smoker Tobacco Type: cigarettes ; Do You Dip or Chew Tobacco: No ; Smoking End Date: 1988 ; Second Hand Exposure: No ; Tobacco Cessation Education Requested by Patient: No Hx Alcohol Use: Yes Alcohol type: wine Alcohol Intake Frequency: Daily Hx Substance Use: No Review of Systems Review of Systems: At least ten systems reviewed and negative except as noted in the HPI. Physical Exam Physical Exam: General Appearance: WD/WN, vitals as above, NAD, sitting up in bed, pleasant, conversing easily Head: normocephalic, atraumatic Eyes: normal inspection, PERRL, conjunctivae normal, anicteric sclerae ENT: external ear and nose normal, oropharynx normal Neck: trachea midline, no thyromegaly normal visual inspection Respiratory: lungs clear to auscultation, no wheeze, rales, rhonchi. Normal insp/exp effort, no accessory muscle use Cardiovascular: regular rate, rhythm, no murmur appreciated, normal peripheral pulses Abdomen/GI: normal bowel sounds, soft, nontender, no hepatosplenomegaly Extremities/Musculoskelatal: + R knee with surgical dressing in place, clean/dry/intact, also with ice in place. +drain visualized. No cyanosis or clubbing, extremities motor strength 5/5 Neurologic: PERRL, EOMI, no dysarthria CN's II-XI intact bilaterally and moves all extremities Psychiatric: A+Ox3, euthymic affect Skin: no rashes, normal color, warm/dry Results & Data Vital Signs (Past 12 Hours) Vital Signs Temp Pulse Pulse Resp BP BP Pulse Ox 02/20/19 18:27 72 17 150/90 H 94 02/20/19 17:53 70 17 160/89 H 95 02/20/19 17:25 36.7 C 68 18 138/86 95 02/20/19 17:00 37.8 C H 65 18 141/86 H 94 02/20/19 16:50 37.8 C H 58 L 19 161/80 H 92 02/20/19 16:42 37.8 C H 60 25 H 143/73 H 95 02/20/19 16:40 37.8 C H 60 25 H 143/73 H 95 02/20/19 16:30 37.8 C H 59 L 13 129/79 93 02/20/19 16:20 37.4 C 61 22 135/66 95 02/20/19 16:10 37.4 C 67 15 149/82 H 95 02/20/19 16:03 37.4 C 73 20 122/81 98 02/20/19 10:48 36.6 C 54 L 20 176/96 H 95 Laboratory Results Pertinent pre-op labs: (01/27/19) Hgb: 13.9 Plt: 210 Cr: 0.72 GFR: 86.1
[2019-02-20] MEDS: OXYCODONE HCL IR 5 MG TAB (IMMEDIATE RELEASE) PO PRN (19:20)
[2019-02-20] MEDS ORDERED: COUGH DROP (SUGAR FREE) LOZ 24 LOZ/1 BOX BUCCAL ONE (19:25)
[2019-02-20] MEDS: FLUTICASONE/SALMETEROL 250/50 (ADVAIR) 14 PUFF/1 INHALER INH SCH (20:57)
[2019-02-20] MEDS: DOCUSATE SODIUM 100 MG CAP PO SCH (20:58)
[2019-02-20] MEDS: ASPIRIN 81 MG ECTAB PO SCH (20:58)
[2019-02-20] MEDS: METOPROLOL TARTRATE 25 MG TAB PO SCH (20:58)
[2019-02-20] MEDS: CALCIUM CARBONATE 1250MG TAB PO SCH (20:59)
[2019-02-20] MEDS: SENNA 8.6 MG TAB PO SCH (21:00)
[2019-02-20] MEDS: CEFAZOLIN 2000MG 2,000 MG/15 ML SYR IV SCH (21:00)
[2019-02-20] MEDS: ACETAMINOPHEN 500 MG TAB PO SCH (21:00)
--- NOTE | 2019-02-20 21:55 | Operative Report ---
DATE OF OPERATION: 02/20/2019 INDICATION FOR PROCEDURE: A 68-year-old female who developed increasing pain in her right knee, status post total knee replacement about [address] Pickard. She has a [place] total knee replacement. She had radiographs with lucencies on the medial and lateral tibial plateau, but no clear lucency of the stem. Her opposite knee replacement appears to be well intact with no lucencies or loosening. The workup included a bone scan which demonstrated increased signal activity under the metaphysis in the medial and lateral tibial plateau consistent with loosening. Differential diagnosis, infection. The patient had alpha defensin testing which was negative. She had preoperative aspiration which was negative for infection. She had a sed rate of 12, C-reactive protein of 0.9. The patient is obese with a BMI of 39.6. 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 PROCEDURE: Right knee revision of tibial components with electrocautery synovectomy, placement of superficial wound VAC, and increased difficulty due to BMI of 39.6. SURGEON: Cristopher Bowden MD RESEARCH HYDRAULIC ENGINEER: NI Bess. ESTIMATED BLOOD LOSS: 100 mL. FINDINGS: Consistent with postoperative diagnosis. SPECIMENS: Including swabs for culture, soft tissue for culture, multiple soft tissue specimens for frozen section. DRAINS: Two Hemovac. ANESTHESIA: MAC spinal regional. COMPLICATIONS: None. DISPOSITION: Recovery room. OVERLAPPING PROCEDURE: None. OPERATIVE PROCEDURE: The patient was taken to the operating room, anesthetized under spinal MAC anesthesia. She was placed supine on the operating room table. A pneumatic tourniquet was placed about her obese upper thigh. Right lower extremity was prepped and draped in sterile fashion. Exam demonstrated an obese leg. She had some ligamentous laxity to varus valgus stress in extension and flexion. Her knee motion was 0 through 125 degrees. The right lower extremity was prepped and draped with ChloraPrep. The leg was elevated and exsanguinated with an Esmarch bandage. A pneumatic tourniquet was raised to 350 mmHg. An anterior incision was made across the right knee through the previous somewhat widened scar. Skin was incised sharply. Subcutaneous flaps were elevated. The prior closure was with Ethibond type suture. Each individual suture was removed, placing traction on the suture cutting with a knife and removing it with hemostat. Then, an incision was made through the medial retinaculum, extended up to the mid third of the quadriceps tendon, and extended down to the medial tibial tubercle. There was clear joint fluid in the joint. No pus. Swab culture was obtained. The synovium was grayish color with fronds of chronic synovitis with thickened marked synovitis throughout the whole knee. There were some areas of the synovium where we did see some polyethylene debris. The femoral component and patellar components were stable. There was synovitis around the edges of the components, but no large areas of osteolysis around either component. The tibia, however, was markedly loose and just with manipulating the tibia by hand one could see the motion. At this time, some synovial samples were sent for culture. We sent some to pathology for evaluation. We did an electrocautery synovectomy removing all the synovium in the gutters, suprapatellar pouch areas at this point. And then the scarred infrapatellar fat was removed over the patellar tendon and synovium resected around the patellar component which was noted to be intact. Did not have any significant wear of the patellar component. The retractors were placed and removed some synovium around the tibial component. There were areas of erosion underneath the medial and lateral tibial plateau. I did do some medial and posteromedial capsular release to be able to sublux the tibia enough anteriorly so we could remove the components. First the extraction device was used for the tibial polyethylene and there was a posterior stabilized tibial polyethylene. We did inspect the polyethylene which demonstrated pitting of the surface with symmetrical polyethylene wear. On the back side, there were some delaminated pieces of polyethylene underneath the tibial component and there was this membrane there in some of the holes of the backside of the tibial component. We did get a culture back there as well. The tibia was subluxed anterior enough that we could remove the entire middle tibial component revealing the canal. There was fragmentation of the cement on the top surface where there was osteolysis underlying it. The central portion where the stem was then placed had a thick cement where the stem was loosened directly from the cement, but the cement was well fixed to the metaphysis of the tibia. We obtained more frozen sections of this osteolytic material underneath the tibial plateau and obtained some more cultures from within the canal. After all the cultures and frozen sections were obtained, we went ahead and irrigated this out copiously with antibiotic solution with bacitracin. There was some increased difficulty getting exposure due to her obesity and having a stable intact femoral component. We did place a sponge between the retractor and the femoral components to avoid scratching. The osteolytic material was all curetted out from the surface of the tibia and there was 5-6 mm in depth of erosion below the old tibial component. The cement removal instruments were used to remove the cement from the canal then. This was performed by splitting the cement, removing some of the piecemeal, using some of the instrumentation to retrograde and remove some of the cement particles. We did place a drill hole through the plug at the base with a sharp tipped reamer and then split the remainder of the plug and removed all the cement pieces at this time. At this time, we went ahead and used the reamers for the canal and then based on preoperative templating I felt it was a 13 stem size, so we went up in sequential sizes up to a 13 stem. We downsized to a 12 for the cutting guide placement. The cutting guide attached to the stem with a 7-degree posterior slope to the guide for the NexGen precoat revision tibial component. The tibial cut was then made just at the base of the deficient tibia trying to get a good base for the tibial component. The size 3 baseplate was appropriate based on previous size that was placed in the preoperative templating. We assessed requirement for an offset and it was felt that we would not need an offset and it would fit better without offset placement. The trial baseplate was rotated into position and we used pins to fixate it and used a broach for the pins of the tibial baseplate. The bone was fairly sclerotic, so I did use a small oscillating blade to precut the thin slot so that we would not cause a fracture. Then the trial tibia was assembled and we did a trial reduction. We had to use a 20 mm polyethylene trial to get enough stability and I felt that we should not use a poly that thick in case we need to make further adjustments, so we felt that we should use a 10-mm full augment which was then placed on the trial and retrialing we felt that patient would get full range of motion and better stability with a 14 mm LPS flex poly insert based on the trialing. At this point, tourniquet time was 2 hours, so we left the trials in place and held pressure on the knee while the tourniquet was let down to revascularize the leg for 16 minutes. During that time, we did cauterize bleeders. We did do a lateral release because the patella tracked slightly laterally and there was a slight liftoff and after lateral release, patella tracked centrally and some of the geniculate vessels were bleeding, so we did cauterize those and any other brisk bleeding. After 16 minutes, the leg was re-exsanguinated with Esmarch bandage. Pneumatic tourniquet was placed back to 350 mmHg and then after copious irrigation and further curettage of the canal after the trials were removed, we did inject Orthomix injection. I copiously irrigated out the knee joint with antibiotic solution with bacitracin and copiously irrigated out the canal. At this time, the Simplex cement was vacuum mixed and the stem was assembled. The tibial stem was the NexGen precoat size 3 tibia assembled to the 10 mm full augment assembled to a 13 straight stem. We used eventually the 14 mm LPS flex poly. The stem was placed press fit with the proximal stem cemented. We held this impacted in position until fully impacted, cleared excess cement, and then inserted the 14 mm LPS flex poly with the insertion device and then reduced the tibia to the femoral component, placed the knee in full extension, and held pressure on the knee in full extension until the cement fully cured. We did use a Betadine soak for 3 minutes. At this point, the knee was copiously irrigated with antibiotic solution with bacitracin. The knee was taken through a range of motion and the knee was completely stable in extension and stable in mid flexion. There was a little bit of laxity of the MCL and full flexion on the medial side, but stable laterally. The wound was copiously irrigated with more antibiotic solution with pulsatile lavage with bacitracin and then 2 drains were brought out laterally. Then the quadriceps tendon and medial retinaculum were closed with interrupted [id number] #1 Vicryl sutures. The knee was taken through full range of motion and the repair was secure. The subcutaneous tissue was closed with interrupted 2-0 Vicryl, the skin was closed with valentina, and a Prevena wound VAC was applied. There was an increased level of difficulty in the procedure throughout the procedure due to her obesity mainly with exposure and retraction. NI Bess, was my election assistant. He functioned as election assistant for the entire procedure. He assisted in patient positioning, prepping, draping, soft tissue retraction, instrument management, and performed the fascial, subcutaneous and skin closure and will participate in the postoperative care of the patient. I attest to the content of the Intraoperative Record and any orders documented therein. Any exceptions are noted below. FRAN
[2019-02-20] MEDS: DiphenhydrAMINE HCL 50 MG/ML VIAL IV PRN (22:12)
[2019-02-21] MEDS: OXYCODONE HCL IR 5 MG TAB (IMMEDIATE RELEASE) PO PRN ×6 (01:54→23:20)
[2019-02-21 05:00] LABS: Hematocrit (blood only) 30.5 % (37-47); Hemoglobin 10.2 g/dL (12.0-16.0); Mean Corpuscular Hgb Conc 33.4 g/dL (32-36); Mean Corpuscular Volume 95.6 fL (80-100); Mean Platelet Volume 9.9 fL (7.4-10.4); Platelet Count 202 K/uL (130-400); RDW Coefficient of Variation 13.3 % (11.5-14.5); RDW Standard Deviation 46.2 fL (36.4-46.3); Red Blood Count 3.19 M/uL (4.2-5.4); White Blood Count 15.24 K/uL (4.8-10.8)
[2019-02-21] MEDS: ACETAMINOPHEN 500 MG TAB PO SCH ×3 (05:21→21:28)
[2019-02-21] MEDS: CEFAZOLIN 2000MG 2,000 MG/15 ML SYR IV SCH (05:21)
[2019-02-21 05:34] LABS: Calcium 8.1 mg/dl (8.5-10.1); Creatinine Clr Calc Pharmacy 84.9 ml/min; Est GFR (African American) 99.7; Est GFR (Non-African American) 86.1; Potassium 4.4 mmol/L (3.5-5.1)
[2019-02-21] MEDS ORDERED: LEVOTHYROXINE SODIUM 125 MCG TABLET PO SCH ×2 (06:30)
[2019-02-21] MEDS: DiphenhydrAMINE HCL 50 MG/ML VIAL IV PRN ×2 (07:46→16:05)
--- NOTE | 2019-02-21 08:15 | Anesthesiology Progress Note ---
Date of Service February 21, 2019 Anesthesia Post Procedure Vital Signs Vital Signs: Temp Pulse Pulse Resp BP BP Pulse Ox 02/21/19 07:39 36.5 C 71 16 112/63 96 02/21/19 03:03 36.4 C L 57 L 15 96/58 L 96 02/20/19 23:01 96 02/20/19 22:59 36.3 C L 60 12 111/64 79 L 02/20/19 20:20 36.4 C L 68 16 123/74 95 02/20/19 19:25 36.7 C 78 16 131/75 96 02/20/19 18:27 72 17 150/90 H 94 02/20/19 17:53 70 17 160/89 H 95 02/20/19 17:25 36.7 C 68 18 138/86 95 02/20/19 17:00 37.8 C H 65 18 141/86 H 94 02/20/19 16:50 37.8 C H 58 L 19 161/80 H 92 02/20/19 16:42 37.8 C H 60 25 H 143/73 H 95 02/20/19 16:40 37.8 C H 60 25 H 143/73 H 95 02/20/19 16:30 37.8 C H 59 L 13 129/79 93 02/20/19 16:20 37.4 C 61 22 135/66 95 02/20/19 16:10 37.4 C 67 15 149/82 H 95 02/20/19 16:03 37.4 C 73 20 122/81 98 02/20/19 10:48 36.6 C 54 L 20 176/96 H 95 Pain Intensity Right Knee: Pain Intensity: 8 Notes Mental Status: alert / awake / arousable and participated in evaluation Patient Amnestic to Procedure: Yes Nausea / Vomiting: adequately controlled Pain: adequately controlled Airway Patency, RR, SpO2: stable & adequate BP & HR: stable & adequate Hydration State: stable & adequate Neuraxial Anesthesia: was administered and sensory block resolved Anesthetic Complications: no major complications apparent and Pt Satisfied with anesthetic care
--- NOTE | 2019-02-21 08:33 | Orthopedic Progress Note ---
Date of Service February 21, 2019 Assessment & Plan (1) Aseptic loosening of prosthetic knee: Postop day 1 status post revision right TKA tibial component. PT and OT protocols. Weightbearing as tolerated. Continue DVT prophylaxis and pain management at this time. Follow cultures. No growth to date. Intraoperative tissue samples sent for frozen section showing less than 5 white cells per high-power field. Acute blood loss anemia -not unusual for the extensive surgery the patient had. Will follow hemoglobin for now. Patient asymptomatic. DC planning-patient considering home health services when discharged per Subjective Patient currently lying in her bed awake and alert. Mild discomfort in the right knee. Denies shortness of breath, chest pain, lightheadedness. No other complaints at this time. Physical Exam Physical Exam: Dressings are clean, dry, and intact. Calves are soft and nontender. Toes are mobile. Neurovascular intact. Hemovac drainage was 100 mL's from the latest shift. She has scant amount of drainage in her Pravena wound VAC tubing. Results & Data Vital Signs (Past 12 Hours) Vital Signs Temp Pulse Resp BP Pulse Ox 02/21/19 07:39 36.5 C 71 16 112/63 96 02/21/19 03:03 36.4 C L 57 L 15 96/58 L 96 02/20/19 23:01 96 02/20/19 22:59 36.3 C L 60 12 111/64 79 L Laboratory Results Laboratory Results WBC 15.24 K/uL (4.8-10.8) H 02/21/19 04:37 RBC 3.19 M/uL (4.2-5.4) L 02/21/19 04:37 Hgb 10.2 g/dL (12.0-16.0) L 02/21/19 04:37 Hct 30.5 % (37-47) L 02/21/19 04:37 MCV 95.6 fL (80-100) 02/21/19 04:37 MCH 32.0 pg (25-34) 02/21/19 04:37 MCHC 33.4 g/dL (32-36) 02/21/19 04:37 RDW Std Deviation 46.2 fL (36.4-46.3) 02/21/19 04:37 RDW Coeff of Angelica 13.3 % (11.5-14.5) 02/21/19 04:37 Plt Count 202 K/uL (130-400) 02/21/19 04:37 MPV 9.9 fL (7.4-10.4) 02/21/19 04:37 Immature Gran % (Auto) 0.4 % 01/27/19 08:54 Neut % (Auto) 63.2 % 01/27/19 08:54 Lymph % (Auto) 24.4 % 01/27/19 08:54 [place] % (Auto) 6.8 % 01/27/19 08:54 Eos % (Auto) 4.5 % 01/27/19 08:54 Baso % (Auto) 0.7 % 01/27/19 08:54 Immature Gran # (Auto) 0.03 K/uL (0.00-0.02) H 01/27/19 08:54 Neut # (Auto) 4.38 K/uL (1.4-6.5) 01/27/19 08:54 Lymph # (Auto) 1.69 K/uL (1.2-3.4) 01/27/19 08:54 [place] # (Auto) 0.47 K/uL (0.11-0.59) 01/27/19 08:54 Eos # (Auto) 0.31 K/uL (0-0.5) 01/27/19 08:54 Baso # (Auto) 0.05 K/uL (0-0.2) 01/27/19 08:54 PT 10.3 Seconds (9.0-12.0) 01/27/19 08:54 INR 1.0 (0.9-1.1) 01/27/19 08:54 APTT 29.4 Seconds (21.0-31.0) 01/27/19 08:54 PTT Ratio 1.1 01/27/19 08:54 Sodium 137 mmol/L (136-145) 02/21/19 04:37 Potassium 4.4 mmol/L (3.5-5.1) 02/21/19 04:37 Chloride 106 mmol/L (98-107) 02/21/19 04:37 Carbon Dioxide 28 mmol/L (21-32) 02/21/19 04:37 Anion Gap 3.0 (3-11) 02/21/19 04:37 BUN 15 mg/dl (7-18) 02/21/19 04:37 Creatinine 0.72 mg/dl (0.6-1.2) 02/21/19 04:37 Est Cr Clr Drug Dosing 84.9 ml/min 02/21/19 04:37 Est GFR ( Amer) 99.7 02/21/19 04:37 Est GFR (Non-Af Amer) 86.1 02/21/19 04:37 BUN/Creatinine Ratio 21.0 (10-20) H 02/21/19 04:37 Glucose 147 mg/dl (70-99) H 02/21/19 04:37 Estimat Average Glucose 108 mg/dl 01/27/19 08:54 Hemoglobin A1c 5.4 % (4.5-5.6) 01/27/19 08:54 Calcium 8.1 mg/dl (8.5-10.1) L 02/21/19 04:37 Albumin 3.6 gm/dl (3.4-5.0) 01/27/19 08:54 Urine Color Dark Yellow 01/27/19 07:32 Urine Appearance Clear (Clear) 01/27/19 07:32 Urine pH 5.0 (4.5-7.5) 01/27/19 07:32 Ur Specific [place] 1.028 (1.000-1.030) 01/27/19 07:32 Urine Protein Negative (Negative) 01/27/19 07:32 Urine Glucose (UA) Negative (Negative) 01/27/19 07:32 Urine Ketones Trace (Negative) H 01/27/19 07:32 Urine Blood Negative (Negative) 01/27/19 07:32 Urine Nitrite Negative (Negative) 01/27/19 07:32 Urine Bilirubin Negative (Negative) 01/27/19 07:32 Urine Urobilinogen Negative (Negative) 01/27/19 07:32 Ur Leukocyte Esterase Negative (Negative) 01/27/19 07:32 Hepatitis C Ab Screen Neg (Neg) 02/21/19 04:37 Blood Type O Positive 02/20/19 10:40 Antibody Screen POSITIVE A 02/20/19 10:40 Antibody Identification Anti-c 02/20/19 10:40 Antibody ID Comment 01/27/19 08:54 Crossmatch See Detail 02/20/19 10:40
[2019-02-21] MEDS: DOCUSATE SODIUM 100 MG CAP PO SCH ×2 (08:44→21:27)
[2019-02-21] MEDS: ASPIRIN 81 MG ECTAB PO SCH ×2 (08:44→21:27)
[2019-02-21] MEDS: FLUTICASONE/SALMETEROL 250/50 (ADVAIR) 14 PUFF/1 INHALER INH SCH ×2 (08:44→21:27)
[2019-02-21] MEDS: ESCITALOPRAM OXALATE 10 MG TAB PO SCH (08:44)
[2019-02-21] MEDS: METOPROLOL TARTRATE 25 MG TAB PO SCH ×2 (08:45→21:27)
[2019-02-21] MEDS: ATORVASTATIN 40 MG TAB PO SCH (08:45)
[2019-02-21] MEDS: predniSONE 5 MG TAB PO SCH (08:47)
[2019-02-21] MEDS: VITAMIN B COMPLEX TAB PO SCH (08:47)
[2019-02-21] MEDS: MULTIVITAMIN TAB PO SCH (08:47)
--- NOTE | 2019-02-21 09:29 | Hospitalist Progress Note ---
Date of Service February 21, 2019 Assessment & Plan (1) Status post revision of total replacement of right knee: This is a 68yo F with a PMH of interstitial lung disease, acquired hypothyroidism, CAD (s/p stent in 2012), hypertension and other medical problems listed below who is POD#0 s/p right TKA revision by Dr. Bowden. -POD#1 s/p right TKA revision by Dr. Bowden Resume Post Op Care per Surgery Protocol Incentive Spirometry 10x per Hour Resume Relative Home Meds Where Appropriate PT/OT with appropriate fall precautions Transition from IV to PO Pain control DVT Prophylaxis Per Surgery Protocol Monitor Daily Labs (2) Interstitial lung disease: Follows with Dr. Dyson -Missed morning dose of prednisone 5mg but received pre-op decadron. Resume home dose prednisone on discharge -Continue 2L NC HS, albuterol PRN (3) CAD (coronary artery disease): H/o stent in 2012. Follow[address] with Dr. Fernández -No chest pain -Baby aspirin currently held by surgery. Recommend resuming soon -Continue statin, Lopressor (4) HTN (hypertension): Normotensive now -Continue Lopressor -Lasix held by surgery. Restart 10 AM (5) Acquired hypothyroidism: H/o toxic multinodular goiter s/p thyroidectomy in 2013 -Recent TSH elevated at 11.17 with Free T4 of 1.63 on 12/30/18. Recommended to take 250mcg of Levothyroxine once a week (and 125mcg all other days) -Due for follow up with [facility] next month PCP: Maury Glover Dispo: Per primary service ROS-No Headache, No Visual Changes, No Nausea, No Vomiting, No Fever, No Chills, No Neck Pain or Stiffness, No Chest Pain, No Palpitations, No SOB, No RYAN, No Cough, No Sputum, No Wheezing, No Abdominal Pain, No Diarrhea, No Hematemesis, No Hemoptysis, No Unexpected Weight Loss, No Flank pain, No Melena, No Hematochezia, No Frequency, No Urgency, No Burning, No Hematuria, No Rashes, No Diaphoresis. Appetite is Normal, Sore R Knee +Drain Physical Exam Gen-AAO x 3, NAD, Afebrile, Obese Head-NCAT, EOMI, PERRLA, Anicteric Sclera, No Posterior Pharyngeal Erythema Neck-Supple, No JVD, No Thyromegaly, No Masses, No LAD, No Bruits Lungs-Clear to Auscultation Bilaterally, No Rales, No Rhonchi, No Wheezing, No Crepitus Chest-No S4, +S1, +S2, No S3, No Murmurs, No Rubs, No Gallops, No Ectopy Abdomen-Soft, Bowel Sounds Present, Non Tender, Non Distended, No Hepatomegaly, No Splenomegaly, No Palpable Masses, No Rebound, No Rigidity, No Guarding Musculoskeletal-Full Range of Motion Bilaterally, No CVAT Extremities-No Cyanosis, No Clubbing, No Edema Nuero-Cranial Nerves II-XII grossly intact, Motor WNL, DTRs WNL, Strength WNL, Non Focal Psych-Normal Mood Labs Checked Results & Data Vital Signs (Past 12 Hours) Vital Signs Temp Pulse Resp BP Pulse Ox 02/21/19 07:39 36.5 C 71 16 112/63 96 02/21/19 03:03 36.4 C L 57 L 15 96/58 L 96 02/20/19 23:01 96 02/20/19 22:59 36.3 C L 60 12 111/64 79 L
[2019-02-21] MEDS: HYDROmorphone INJ 0.5 MG/0.5 ML SYR IV PRN (20:01)
[2019-02-21] MEDS: CALCIUM CARBONATE 1250MG TAB PO SCH (21:27)
[2019-02-21] MEDS: SENNA 8.6 MG TAB PO SCH (21:28)
[2019-02-22] MEDS: OXYCODONE HCL IR 5 MG TAB (IMMEDIATE RELEASE) PO PRN ×5 (03:25→20:24)
[2019-02-22 05:26] LABS: Hematocrit (blood only) 23.3 % (37-47); Hemoglobin 8.1 g/dL (12.0-16.0); Mean Corpuscular Hemoglobin 32.5 pg (25-34); Mean Corpuscular Hgb Conc 34.8 g/dL (32-36); Mean Corpuscular Volume 93.6 fL (80-100); Mean Platelet Volume 9.3 fL (7.4-10.4); Platelet Count 152 K/uL (130-400); RDW Coefficient of Variation 13.2 % (11.5-14.5); RDW Standard Deviation 45.1 fL (36.4-46.3); Red Blood Count 2.49 M/uL (4.2-5.4); White Blood Count 8.88 K/uL (4.8-10.8)
[2019-02-22] MEDS: LEVOTHYROXINE SODIUM 125 MCG TABLET PO SCH (05:30)
[2019-02-22] MEDS: ACETAMINOPHEN 500 MG TAB PO SCH ×3 (05:30→21:51)
[2019-02-22 05:49] LABS: BUN Creatinine Ratio 28.2 (10-20); Calcium 8.3 mg/dl (8.5-10.1); Creatinine Clr Calc Pharmacy 84.9 ml/min; Est GFR (African American) 99.7; Est GFR (Non-African American) 86.1
[2019-02-22 06:06] LABS: Potassium 4.1 mmol/L (3.5-5.1)
--- NOTE | 2019-02-22 07:02 | Orthopedic Progress Note ---
Date of Service February 22, 2019 Assessment & Plan (1) Aseptic loosening of prosthetic knee: Postop day 2 status post revision right TKA tibial component. PT and OT protocols. Weightbearing as tolerated. Continue DVT prophylaxis and pain management at this time. Follow cultures. No growth to date. Intraoperative tissue samples sent for frozen section showing less than 5 white cells per high-power field. Acute blood loss anemia -hemoglobin has dropped down to 8.1. Will discuss possi ble discontinuation of Pravena wound VAC with Dr. Bowden. Recheck hemoglobin later today. DC planning-patient considering home health services when discharged per Subjective Patient sleeping upon arrival. Easily awoken. States that she is feeling okay today. No overt lightheadedness. Denies chest pain or shortness of breath. Pain is fairly well controlled this morning. She states that nursing is had to change the Pravena wound VAC canister a total of 3 times. Physical Exam Physical Exam: Pravena wound VAC with noted blood or drainage in the sponge. She has a little bit of drainage noted in the tube itself. Calves are soft and nontender. Neurovascular intact. Toes are mobile. Results & Data Vital Signs (Past 12 Hours) Vital Signs Temp Pulse Pulse Resp BP Pulse Ox 02/22/19 06:19 36.5 C 69 14 116/71 96 02/21/19 23:29 36.7 C 83 15 106/61 96 02/21/19 21:23 81 110/68 Laboratory Results Laboratory Results WBC 8.88 K/uL (4.8-10.8) 02/22/19 05:07 RBC 2.49 M/uL (4.2-5.4) L 02/22/19 05:07 Hgb 8.1 g/dL (12.0-16.0) L 02/22/19 05:07 Hct 23.3 % (37-47) L 02/22/19 05:07 MCV 93.6 fL (80-100) 02/22/19 05:07 MCH 32.5 pg (25-34) 02/22/19 05:07 MCHC 34.8 g/dL (32-36) 02/22/19 05:07 RDW Std Deviation 45.1 fL (36.4-46.3) 02/22/19 05:07 RDW Coeff of Angelica 13.2 % (11.5-14.5) 02/22/19 05:07 Plt Count 152 K/uL (130-400) 02/22/19 05:07 MPV 9.3 fL (7.4-10.4) 02/22/19 05:07 Immature Gran % (Auto) 0.4 % 01/27/19 08:54 Neut % (Auto) 63.2 % 01/27/19 08:54 Lymph % (Auto) 24.4 % 01/27/19 08:54 [place] % (Auto) 6.8 % 01/27/19 08:54 Eos % (Auto) 4.5 % 01/27/19 08:54 Baso % (Auto) 0.7 % 01/27/19 08:54 Immature Gran # (Auto) 0.03 K/uL (0.00-0.02) H 01/27/19 08:54 Neut # (Auto) 4.38 K/uL (1.4-6.5) 01/27/19 08:54 Lymph # (Auto) 1.69 K/uL (1.2-3.4) 01/27/19 08:54 [place] # (Auto) 0.47 K/uL (0.11-0.59) 01/27/19 08:54 Eos # (Auto) 0.31 K/uL (0-0.5) 01/27/19 08:54 Baso # (Auto) 0.05 K/uL (0-0.2) 01/27/19 08:54 PT 10.3 Seconds (9.0-12.0) 01/27/19 08:54 INR 1.0 (0.9-1.1) 01/27/19 08:54 APTT 29.4 Seconds (21.0-31.0) 01/27/19 08:54 PTT Ratio 1.1 01/27/19 08:54 Sodium 133 mmol/L (136-145) L 02/22/19 05:07 Potassium 4.1 mmol/L (3.5-5.1) 02/22/19 05:07 Chloride 100 mmol/L (98-107) 02/22/19 05:07 Carbon Dioxide 32 mmol/L (21-32) 02/22/19 05:07 Anion Gap 1.0 (3-11) L 02/22/19 05:07 BUN 20 mg/dl (7-18) H 02/22/19 05:07 Creatinine 0.72 mg/dl (0.6-1.2) 02/22/19 05:07 Est Cr Clr Drug Dosing 84.9 ml/min 02/22/19 05:07 Est GFR ( Amer) 99.7 02/22/19 05:07 Est GFR (Non-Af Amer) 86.1 02/22/19 05:07 BUN/Creatinine Ratio 28.2 (10-20) H 02/22/19 05:07 Glucose 106 mg/dl (70-99) H 02/22/19 05:07 Estimat Average Glucose 108 mg/dl 01/27/19 08:54 Hemoglobin A1c 5.4 % (4.5-5.6) 01/27/19 08:54 Calcium 8.3 mg/dl (8.5-10.1) L 02/22/19 05:07 Albumin 3.6 gm/dl (3.4-5.0) 01/27/19 08:54 Urine Color Dark Yellow 01/27/19 07:32 Urine Appearance Clear (Clear) 01/27/19 07:32 Urine pH 5.0 (4.5-7.5) 01/27/19 07:32 Ur Specific [place] 1.028 (1.000-1.030) 01/27/19 07:32 Urine Protein Negative (Negative) 01/27/19 07:32 Urine Glucose (UA) Negative (Negative) 01/27/19 07:32 Urine Ketones Trace (Negative) H 01/27/19 07:32 Urine Blood Negative (Negative) 01/27/19 07:32 Urine Nitrite Negative (Negative) 01/27/19 07:32 Urine Bilirubin Negative (Negative) 01/27/19 07:32 Urine Urobilinogen Negative (Negative) 01/27/19 07:32 Ur Leukocyte Esterase Negative (Negative) 01/27/19 07:32 Hepatitis C Ab Screen Neg (Neg) 02/21/19 04:37 Blood Type O Positive 02/20/19 10:40 Antibody Screen POSITIVE A 02/20/19 10:40 Antibody Identification Anti-c 02/20/19 10:40 Antibody ID Comment 01/27/19 08:54 Crossmatch See Detail 02/20/19 10:40
[2019-02-22] MEDS: MULTIVITAMIN TAB PO SCH (07:55)
[2019-02-22] MEDS: ATORVASTATIN 40 MG TAB PO SCH (07:55)
[2019-02-22] MEDS: FLUTICASONE/SALMETEROL 250/50 (ADVAIR) 14 PUFF/1 INHALER INH SCH ×2 (07:55→20:25)
[2019-02-22] MEDS: VITAMIN B COMPLEX TAB PO SCH (07:55)
[2019-02-22] MEDS: predniSONE 5 MG TAB PO SCH (07:55)
[2019-02-22] MEDS: ESCITALOPRAM OXALATE 10 MG TAB PO SCH (07:56)
[2019-02-22] MEDS: DOCUSATE SODIUM 100 MG CAP PO SCH ×2 (07:56→20:26)
[2019-02-22] MEDS: METOPROLOL TARTRATE 25 MG TAB PO SCH ×2 (07:57→20:26)
[2019-02-22] MEDS: ASPIRIN 81 MG ECTAB PO SCH ×2 (07:58→20:27)
[2019-02-22] MEDS: HYDROmorphone INJ 0.5 MG/0.5 ML SYR IV PRN (10:19)
[2019-02-22] MEDS: KETOROLAC TROMETHAMINE 15 MG/ML VIAL IV SCH ×2 (14:09→20:25)
[2019-02-22] MEDS: CALCIUM CARBONATE 1250MG TAB PO SCH (20:27)
[2019-02-22] MEDS: SENNA 8.6 MG TAB PO SCH (20:28)
--- NOTE | 2019-02-22 20:30 | Hospitalist Progress Note ---
Date of Service February 22, 2019 Assessment & Plan (1) Status post revision of total replacement of right knee: This is a 68yo F with a PMH of interstitial lung disease, acquired hypothyroidism, CAD (s/p stent in 2012), hypertension and other medical problems listed below who is POD#0 s/p right TKA revision by Dr. Bowden. POD#2 s/p right TKA revision by Dr. Bowden No post-op complication Continue Incentive Spirometry Pain controlled Hgb 8.1, will repeat H/H later today PT/OT Fall precaution (2) Acute blood loss anemia: related to recent post op procedure Hgb dropped to 8.1 today Will repeat H/H later will Transfuse if hgb drops below 8 Continue monitor h/h (3) Interstitial lung disease: Follows with Dr. Dyson Continue Prednisone Continue 2L NC HS, albuterol PRN (4) CAD (coronary artery disease): H/o stent in 2012. Follows with Dr. Fernández Continue statin, Lopressor and aspirin (5) HTN (hypertension): BP control Continue Lopressor Will resume lasix in (6) Acquired hypothyroidism: H/o toxic multinodular goiter s/p thyroidectomy in 2013 Stable Follow up with [facility] next month Dispo: As per Ortho Subjective Pt was seen and examined Lying in bed with no distress Pt said that her pain is controlled with the narcotic Denies any chest pain, palpitation and SOB Physical Exam Physical Exam: General- No acute distress Head- atraumatic Eyes- PERRL, EOMI, ENT- oropharynx clear Neck- supple, no JVD Lungs- clear to auscultation Heart- regular rhythm; no murmur Abdomen- normal bowel sounds, soft, nontender Extremities- no calf tenderness Neuro- alert, oriented x 3; PERRL, EOMI; no facial palsy; no dysarthria Skin- warm & dry Results & Data Vital Signs (Past 12 Hours) Vital Signs Temp Pulse Resp BP Pulse Ox 02/22/19 20:23 68 117/68 100 02/22/19 15:24 36.5 C 71 16 119/65 97 02/22/19 15:02 36.5 C 73 16 136/84 96 02/22/19 10:06 96 02/22/19 10:04 116/70 84 L
[2019-02-23] MEDS: KETOROLAC TROMETHAMINE 15 MG/ML VIAL IV SCH ×3 (00:52→13:02)
[2019-02-23] MEDS: OXYCODONE HCL IR 5 MG TAB (IMMEDIATE RELEASE) PO PRN ×2 (00:58→10:25)
[2019-02-23 05:29] LABS: Basophils # (auto) 0.02 K/uL (0-0.2); Basophils % (auto) 0.2 %; Eosinophils # (auto) 0.23 K/uL (0-0.5); Eosinophils % (auto) 2.8 %; Hematocrit (blood only) 25.2 % (37-47); Hemoglobin 8.3 g/dL (12.0-16.0); Immature Granulocytes # (auto) 0.03 K/uL (0.00-0.02); Immature Granulocytes % (auto) 0.4 %; Lymphocytes # (auto) 2.02 K/uL (1.2-3.4); Lymphocytes % (auto) 24.2 %; Mean Corpuscular Hemoglobin 32.2 pg (25-34); Mean Corpuscular Hgb Conc 32.9 g/dL (32-36); Mean Corpuscular Volume 97.7 fL (80-100); Mean Platelet Volume 9.9 fL (7.4-10.4); Monocytes # (auto) 0.83 K/uL (0.11-0.59); Neutrophils % (auto) 62.4 %; Platelet Count 170 K/uL (130-400); RDW Coefficient of Variation 13.8 % (11.5-14.5); RDW Standard Deviation 49.1 fL (36.4-46.3); Red Blood Count 2.58 M/uL (4.2-5.4); White Blood Count 8.33 K/uL (4.8-10.8)
[2019-02-23] MEDS: LEVOTHYROXINE SODIUM 125 MCG TABLET PO SCH (05:35)
[2019-02-23] MEDS: ACETAMINOPHEN 500 MG TAB PO SCH ×2 (05:35→13:02)
[2019-02-23 06:31] LABS: BUN Creatinine Ratio 20.3 (10-20); Calcium 8.9 mg/dl (8.5-10.1); Creatinine Clr Calc Pharmacy 79.4 ml/min; Est GFR (Non-African American) 79.3; Potassium 4.3 mmol/L (3.5-5.1)
[2019-02-23 08:15] VITALS: BP 113/73; PULSE 75
[2019-02-23] MEDS: FLUTICASONE/SALMETEROL 250/50 (ADVAIR) 14 PUFF/1 INHALER INH SCH (08:15)
[2019-02-23] MEDS: ATORVASTATIN 40 MG TAB PO SCH (08:16)
[2019-02-23] MEDS: MULTIVITAMIN TAB PO SCH (08:16)
[2019-02-23] MEDS: predniSONE 5 MG TAB PO SCH (08:16)
[2019-02-23] MEDS: ASPIRIN 81 MG ECTAB PO SCH (08:16)
[2019-02-23] MEDS: ESCITALOPRAM OXALATE 10 MG TAB PO SCH (08:16)
[2019-02-23] MEDS: METOPROLOL TARTRATE 25 MG TAB PO SCH (08:17)
[2019-02-23] MEDS: VITAMIN B COMPLEX TAB PO SCH (08:17)
[2019-02-23] MEDS: DOCUSATE SODIUM 100 MG CAP PO SCH (08:18)
--- NOTE | 2019-02-23 08:26 | Hospitalist Progress Note ---
Date of Service February 23, 2019 Assessment & Plan (1) Status post revision of total replacement of right knee: POD#3 s/p right TKA revision by Dr. Bowden EBL#100ml Drain output #335ml in past 24 hours -pain management per ortho -wound management per ortho -PT/OT as appropriate -DVT prophylaxis per ortho -Incentive spirometry -Hgb: 8.3 and stable for past couple of days. Pre-op hgb: 13.9. Acute blood loss anemia (2) Interstitial lung disease: Follows with Dr. Dyson -Received pre-op Decadron -Continue home dose prednisone -Continue 2L NC HS, Advair, albuterol PRN (3) CAD (coronary artery disease): H/o stent in 2012. Follows with Dr. Fernández -No chest pain -Continue aspirin, statin, Lopressor (4) HTN (hypertension): Stable -Continue Lopressor -Lasix initially held and was resumed 02/22/19 (5) Acquired hypothyroidism: H/o toxic multinodular goiter s/p thyroidectomy in 2013 -Recent TSH elevated at 11.17 with Free T4 of 1.63 on 12/30/18. Recommended to take 250mcg of Levothyroxine once a week (and 125mcg all other days) -Due for follow up with [facility] next month PCP: Maury Glover Dispo: Per primary service DVT Prophylaxis -SCDs, ASA Pt was seen and care coordinated with Dr Hyman. See addendum Supervising Physician Co-Signing Physician Notes Pt was seen and examined. Agreed with Queta CANCHOLA exam, assessment and plan. Lying in bed with no distress. Denies any chest pain, palpitation, dizziness and SOB Exam General- No acute distress Head- atraumatic Eyes- PERRL, EOMI, ENT- oropharynx clear Neck- supple, no JVD Lungs- clear to auscultation Heart- regular rhythm; no murmur Abdomen- normal bowel sounds, soft, nontender Extremities- no calf tenderness Neuro- alert, oriented x 3; PERRL, EOMI; no facial palsy; no dysarthria Skin- warm & dry POD#3 s/p right TKA revision by Dr. Bowden No post-op complication Continue Incentive Spirometry Pain controlled Hgb 8.3 today PT/OT Fall precaution (2) Acute blood loss anemia: related to recent post op procedure Hgb dropped to 8.3 today Will need to check CBC in 1 week outpatient to monitor hemoglobin Disposition As per Rg Hyman MD Subjective Pt seen and examined sitting up in bedside chair. POD #3. Reports knee pain controlled with medications. Notes some edema and ecchymosis to right lower leg. Denies calf pain. Has been able to ambulate to bathroom. Denies dizziness, syncope, CP, SOB. Eating and drinking well. Had BM yesterday and today. Using chronic oxygen HS. Denies fever/chills, diaphoresis, N/V, ESCALERA, orthopnea, palpitations, cough, sore throat, choking, abdominal pain, paresthesias, weakness, rashes, urinary symptoms. Review of Systems Review of Systems: All systems reviewed & are unremarkable except as noted in HPI & below Physical Exam Physical Exam: General: no acute distress, WDWN Head: normocephalic, atraumatic Eyes: conjunctiva non-injected, anicteric ENT: normal inspection external ears, nose, mucous membranes moist Neck: supple, trachea midline Lungs: clear, no respiratory distress, no wheezing/rhonchi/rales CV: RRR, no murmur Abd: normal BS, soft, non-tender Ext: no calf tenderness; RLE: +wound vac in place to right anterior knee, +ecchymosis and edema to leg; distal pulses intact Neuro: A&O x 3, no focal deficits noted, normal affect Skin: warm, dry Results & Data Vital Signs (Past 12 Hours) Vital Signs Temp Pulse Resp BP Pulse Ox 02/23/19 08:14 75 113/73 02/23/19 06:28 36.4 C L 63 16 125/73 97 02/22/19 23:35 36.6 C 67 15 108/68 99 Laboratory Results Short CBC 02/22/19 02/23/19 Range/Units 13:56 04:47 WBC 8.33 (4.8-10.8) K/uL Hgb 8.9 L 8.3 L (12.0-16.0) g/dL Hct 25.2 L (37-47) % Plt Count 170 (130-400) K/uL BMP 02/23/19 04:49 Sodium 139 Potassium 4.3 Chloride 104 Carbon Dioxide 32 BUN 16 Creatinine 0.77 Glucose 95 Calcium 8.9
[2019-02-23 08:29] VITALS: TEMP 97.5
[2019-02-23] MEDS ORDERED: FUROSEMIDE 40 MG TAB PO SCH (09:00)
[2019-02-23 12:22] VITALS: O2SAT 92
--- NOTE | 2019-02-23 12:44 | Orthopedic Progress Note ---
Date of Service February 23, 2019 Assessment & Plan (1) Aseptic loosening of prosthetic knee: Postop day 3 status post revision right TKA tibial component. PT and OT protocols. Weightbearing as tolerated. Continue DVT prophylaxis and pain management at this time. Follow cultures. No growth to date. Intraoperative tissue samples sent for frozen section showing less than 5 white cells per high-power field. Acute blood loss anemia -hemoglobin was 8.3 this morning and remaining stable DC planning-home health services planned. Plan for discharge home today. Subjective Patient doing well today. Pain control is much better. States she did some ambulation around the halls today. She developed a little bit of shortness of breath which she states is her usual if she tries to walk too fast. She uses oxygen at home at night or with increased activity at times. She states that her shortness of breath is at baseline. She is hoping to go home today. Physical Exam Physical Exam: Pravena wound VAC was discontinued. Incision is benign. Calves are soft nontender. Neurovascular is intact. Toes are mobile. Ecchymosis noted. Results & Data Vital Signs (Past 12 Hours) Vital Signs Temp Pulse Resp BP Pulse Ox 02/23/19 12:22 92 02/23/19 08:14 75 113/73 02/23/19 06:28 36.4 C L 63 16 125/73 97
--- NOTE | 2019-03-01 22:10 | Discharge Summary ---
DISCHARGE DIAGNOSES: Right knee aseptic loosening of total knee replacement. SECONDARY DIAGNOSES: Coronary artery disease status post myocardial infarction, interstitial lung disease, hypothyroidism, obesity, acute blood loss anemia. CONSULTS: Rosalinda Hennessy PA-C/Flaco Perez MD COMPLICATIONS: None. PROCEDURES: Right knee revision of tibial components. BRIEF HISTORY: As dictated in the history and physical. HOSPITAL SUMMARY: The patient was admitted on the above-noted date and had the above-noted surgery performed, which she tolerated well. On the first postoperative day, the patient was currently lying in bed, awake and alert. She had mild discomfort in the right knee. Denied shortness of breath, chest pain or lightheadedness. She had no other complaints. Dressings were intact and dry. Calves were soft, nontender. Toes were mobile. Neurovascularly intact. Hemovac drainage was 100 mL from the previous shift and she had scant amount of drainage in her Prevena wound VAC tubing. Vital signs were stable. She was afebrile. Hemoglobin was 10.2. She was started on physical therapy protocol and continued on DVT prophylaxis and pain management. Cultures intraoperatively had been taken and were followed during her stay. Several frozen sections were taken during the procedure and all showed less than 5 white cells per high power field. Plans were to follow her hemoglobin and transfuse as necessary. She was considering home health services upon discharge. By her second postoperative day, she was feeling okay. She had no overt lightheadedness. Denies chest pain or shortness of breath. Pain was fairly well controlled that morning and stated that nursing had to change the Prevena wound VAC canister in total of 3 times at that point. The Prevena wound VAC was noted blood or drainage in the sponge and some in the tubing. Calves were soft, nontender, neurovascularly intact. Toes were mobile. Hemoglobin was 8.1. She was continued on her PT and OT protocols. Cultures were continued to show no growth to date and plans were to discuss wound VAC change with Dr. Bowden. Plans were also to recheck her hemoglobin later in the day which ended up being 8.9. She was otherwise remaining stable, and by 02/23/2019, she was doing well. Pain control was much better. She had done some ambulation in the hallways and developed a somewhat shortness of breath which she states is her usual if she tries to walk at a hurried pace. She uses oxygen at home at night or with increased activity. She stated that her shortness of breath is baseline and she was hoping to go home. Her Prevena wound VAC was discontinued. Incision was benign. Calves were soft, nontender, neurovascularly intact. Toes were mobile. She had moderate ecchymosis noted from under the dressing and down her leg. She was otherwise progressing well with her PT, remained medically stable and it was felt she could be discharged to home. For further review, please see chart. LABORATORY AND X-RAY DATA: As per chart. DISCHARGE INSTRUCTIONS: The patient was discharged home in satisfactory condition on 02/23/2019. Diet: Heart healthy. Activity: Weightbearing as tolerated on the right lower extremity with walker. Follow TK instruction sheets and special care instructions as noted. The patient is to have a CBC done within 1 week of discharge. DISCHARGE MEDICATIONS: Acetaminophen 1000 mg p.o. q. 8 hours, aspirin 81 mg p.o. b.i.d., oxycodone 5 mg p.o. q. 4 hours p.r.n., sennosides 17.2 mg p.o. at bedtime. Resume home meds as listed and stop taking previous aspirin dosage. MTDD
== END 2019-02-23 13:13 | disposition home health service (06) | DRG 467 ==
LOC: ASU 10:04 → 3E 16:15